=== PATIENT | male | born 1990 | race Caucasian/White ===

== ENCOUNTER 2022-05-31 10:32 | Emergency (ER) | payer BC, SELFPAY ==
[2022-05-31 10:45] VITALS: BP 137/90; PULSE 80; RESP 16; TEMP 35.6; O2SAT 97; BMI 42.1
--- NOTE | 2022-05-31 11:05 | CRLHL7_ITS ---
For Patients: As a result of the Century Cures Act, medical imaging exams and procedure reports are released immediately into your electronic medical record. You may view this report before your referring provider. If you have questions, please contact your health care provider. INDICATION: SOB TECHNIQUE: Chest 2 views. COMPARISON: 11/28/21 FINDINGS: Cardiovascular and mediastinum: Heart size and vasculature are normal in caliber and appearance. Mediastinum is within normal limits. Lungs and pleural spaces: Lungs are clear. No sign of infiltrate or mass. No sign of pleural effusion. No pneumothorax. Bones and soft tissues: No significant findings. IMPRESSION: Unremarkable chest. Dictated by: Jereym Montenegro MD @ 05/31/2022 11:48:18 (Electronically Signed)
--- NOTE | 2022-05-31 11:08 | ED_ITS ---
HPI - General Adult General Chief complaint: Shortness of Breath/Dyspnea Stated complaint: Shortness of breath,irregular heartbear Time Seen by Provider: 05/31/22 10:53 Source: patient Mode of arrival: ambulatory Limitations: no limitations History of Present Illness HPI narrative: 31-year-old male coming in today concerned about not feeling well. He states that for the last 4 days he has been feeling short of breath. He notices this especially when he is at rest or he just is unable to catch a good enough breath. He states that this morning he felt some pressure in his chest, but that has since resolved. In the last 4 days he has also had pain in his entire back both upper and lower back, and in his arms. Patient is concerned that he has COPD and he would like to have that tested in the emergency room today. He denies any fevers or chills. He has not been coughing. He denies any sick contacts. He states that he does smoke a half to 1 pack of cigarettes per day and he smokes about 2 joints or a bowl of marijuana daily. He denies any alcohol use or any other drug use. He states that he does have a history of anxiety and that he stop taking his Abilify about a month ago because he did not get the blood work needed for his refill. He states that he did just have blood work done this week and he does not feel that blood work is necessary today. He is also on hydroxyzine and fluoxetine. Patient is not sure how he sleeps at night, states that sometimes he sleeps a few hours another time sleeps many hours. He does state that he snores and he is also concerned that he has sleep apnea. He states that he works at [employer], and walks several 1000 steps per day. Yesterday states that he walked 7000 steps and felt a little short of breath at the end of the day. Had no issues during the day. Related Data Home Medications Medication Instructions Recorded Confirmed fluoxetine 20 mg capsule mg 05/31/22 hydroxyzine HCl 25 mg tablet mg 05/31/22 Allergies Allergy/AdvReac Type Severity Reaction Status Date / Time No Known Allergies Allergy Verified 05/31/22 10:50 Review of Systems Status of ROS: Reports: 10 or more systems reviewed and unremarkable except as noted in History and below PFSH PFS Social History Smoking Status: Current every day smoker What tobacco products do you use: cigarettes Do you use any of these nicotine containing products: None Second hand tobacco smoke exposure: No How often do you have a drink containing alcohol: never How often do you have six or more drinks on one occasion: Never AUDIT-C Alcohol total score: 0 Non-prescribed substance use: marijuana (any form) service: No Exam Narrative: Exam Narrative: Well-nourished well-developed patient in no acute distress. Alert and oriented. Answers questions appropriately. Mood is appropriate, flat affect.. Thoughts are goal oriented and rational. No tangential or magical thinking noted. Patient speaks in full sentences without needing to catch his breath. He does not cough. HEENT: Normocephalic atraumatic. Pupils are equally round reactive to light. Extraocular muscles are intact. Conjunctivae are moist without any icterus noted. Moist mucous membranes. Posterior pharynx is normal. Neck is soft without any lymphadenopathy or thyromegaly. No masses are appreciated. Cardiovascular: Heart is regular rate and rhythm S1 and S2 are present without any murmurs. Lungs: Clear to auscultation bilaterally no wheezes rhonchi or rales are appreciated. Patient takes deep breaths without any discomfort. Abdomen: Soft and nontender nondistended with normal bowel sounds. No guarding or rebound. No masses or organomegaly appreciated. Extremities: Bilateral lower extremities are without edema. Normal DP and PT pulses. Skin: Well perfused without any obvious rashes. Const: Vital Signs, click to edit/add: Vital Signs - 24 hr 05/31/22 10:45 Temperature 96.0 F L Pulse Rate [Left P ulse Oximeter] 80 Respiratory Rate 16 Blood Pressure [Le ft Upper Arm] 137/90 H Pulse Oximetry 97 Oxygen Delivery Me thod Room Air Course Course Hospital Course: We did go ahead and do an EKG which showed normal sinus rhythm. Chest x-ray was done and read by me, was normal. We discussed lab work today, but again patient felt like that would not be necessary given that he just had lab work done this week. Vital Signs Vital signs: Initial Vital Signs Temperature 96.0 F L 05/31/22 10:45 Temperature Source Temporal Artery Scan 05/31/22 10:45 Pulse Rate 80 05/31/22 10:45 Pulse Rhythm 05/31/22 10:45 Pulse Strength 3+ Normal 05/31/22 10:45 Respiratory Rate 16 05/31/22 10:45 Blood Pressure 137/90 H 05/31/22 10:45 Blood Pressure Mean 105 05/31/22 10:45 Blood Pressure Position Supine 05/31/22 10:45 Pulse Oximetry 97 05/31/22 10:45 Oxygen Delivery Method 05/31/22 10:45 Vital Signs Temperature 96.0 F L 05/31/22 10:45 Pulse Rate 80 05/31/22 10:45 Respiratory Rate 16 05/31/22 10:45 Blood Pressure 137/90 H 05/31/22 10:45 Pulse Oximetry 97 05/31/22 10:45 Oxygen Delivery Method 05/31/22 10:45 Temperature 96.0 F L 05/31/22 10:45 Pulse Rate 80 05/31/22 10:45 Respiratory Rate 16 05/31/22 10:45 Blood Pressure 137/90 H 05/31/22 10:45 Pulse Oximetry 97 05/31/22 10:45 Oxygen Delivery Method 05/31/22 10:45 Medical Decision Making MDM Narrative Medical decision making narrative: 31-year-old male with shortness of breath. We discussed the possibility that he could be developing asthma. We discussed smoking cessation. We discussed following up with primary care provider for further testing. We discussed the role of the emergency room in diagnosing things like asthma or COPD-discussed that we would stabilize difficulty breathing here however the diagnosis would be made in the clinic. Patient appears to understand this and will follow up as recommended. His symptoms not appear to be cardiac in nature. Are we discussed the possibility of GERD and [id number] antacids versus Tums. We discussed getting back on his Abilify. Differential diagnosis for his symptoms include anxiety, GERD, asthma, sleep apnea. Medical Records Medical records reviewed: Yes I reviewed the patient's medical records Imaging Data Chest x-ray: Attestation: I have reviewed the pertinent imaging results. My impression: Normal chest Radiologist's impression: FINDINGS: Cardiovascular and mediastinum: Heart size and vasculature are normal in caliber and appearance. Mediastinum is within normal limits. Lungs and pleural spaces: Lungs are clear. No sign of infiltrate or mass. No sign of pleural effusion. No pneumothorax. Bones and soft tissues: No significant findings. IMPRESSION: Unremarkable chest. ECG Data Attestation: I personally reviewed and interpreted this ECG as follows: (Normal sinus rhythm) Discharge Plan Discharge Clinical Impression: Shortness of breath Patient Disposition: Home, Self-Care Condition: Stable Additional Instructions: Recommend you restart your Abilify. Can try things like omeprazole, [id number] medication to reduce the amount of acid in her stomach, to see if this helps with your discomfort. Recommend you follow-up with your primary care provider to discuss the diagnosis of asthma. You should also discussed smoking cessation and things you can do to help cut down your cigarette use. Lastly, discuss, with your primary care provider, doing a sleep study for possible sleep apnea. Prescriptions: No Action hydroxyzine HCl 25 mg tablet Label Comments: TAKE ONE TABLET BY MOUTH FOUR TIMES A DAY NEEDED FOR ANXIETY fluoxetine 20 mg capsule Label Comments: TAKE ONE CAPSULE BY MOUTH EVERY DAY IN THE MORNING Stand Alone Forms: [employer] Info Instructions
[2022-05-31 11:57] VITALS: PULSE 68; RESP 16; O2SAT 98
== END 2022-05-31 11:58 | disposition home or self-care (01) ==
PROVIDERS: Emergency Provider Family Medicine; PCP Physician Assistant Medical
DX: R06.02 Shortness of breath (principal)
CPT/HCPCS: 71046; 93005; 99284